=== PATIENT | female | born 2000 | race Caucasian/White ===

== ENCOUNTER 2022-12-11 17:49 | Emergency (ER) | payer BC ==
[~2022-12-11] VITALS: Ht 172.7 cm; Wt 65.8 kg
[2022-12-11 17:54] VITALS: BP_SYST 142
[2022-12-11] MEDS ORDERED: ACETAMINOPHEN 325 MG TABLET PO ONE (18:30)
[2022-12-11 20:50] VITALS: BP_SYST 131
[2022-12-11] MEDS ORDERED: ONDA-8 TL (20:51)
[2022-12-11] MEDS ORDERED: IBUP-1971 PO (20:51)
== END 2022-12-11 20:50 | disposition home or self-care (01) ==
LOC: SED 17:49
DX: S09.90XA Unspecified injury of head, initial encounter (principal); F07.81 Postconcussional syndrome; Z79.899 Other long term (current) drug therapy; W22.8XXA Striking against or struck by other objects, initial encounter; Y93.E1 Activity, personal bathing and showering; Y92.89 Other specified places as the place of occurrence of the external cause; Y99.8 Other external cause status
CPT/HCPCS: 70450-TC; 76376; 81025; 99284

== ENCOUNTER 2023-01-27 08:43 | Emergency (ER) | payer BC ==
[~2023-01-27] VITALS: Ht 172.7 cm; Wt 64.9 kg
[~2023-01-27 08:43] MED LIST: IBUP-1971 PO; ONDA-8 TL
[2023-01-27 08:53] VITALS: BP_SYST 134
--- NOTE | 2023-01-27 09:15 | NUR ---
Pt bib self from home. Chief complaint dysuria and frequency. Pt states history of 3 UTI in past 6 months. Pt complains of 5/10 pain gradient located in pelvic region intermittently.
--- NOTE | 2023-01-27 09:27 | NUR ---
Urine collected and sent to lab. HCG POC negative.
--- NOTE | 2023-01-27 09:30 | NUR ---
ER at bedside examining patient.
[2023-01-27 10:20] LABS: BILIRUBIN,URINE NEGATIVE (NEGATIVE); BLOOD, URINE NEGATIVE (NEGATIVE); CLARITY/URINE CLEAR (CLEAR); COLOR,URINE YELLOW (YELLOW); GLUCOSE,URINE NEGATIVE (NEGATIVE); KETONES,URINE NEGATIVE (NEGATIVE); LEUKOCYTE ESTERASE ,URINE NEGATIVE (NEGATIVE); NITRITE, URINE NEGATIVE (NEGATIVE); PROTEIN URINE NEGATIVE (NEGATIVE); UROBILINOGEN,URINE 0.2 (0.2-1.0)
[2023-01-27] MEDS ORDERED: PHEN-726 PO (10:35)
--- NOTE | 2023-01-27 10:41 | NUR ---
Patient given written and verbal discharge instructions and verbalizes understanding. ER MD discussed with patient the results and treatment provided. Patient in stable condition. ID arm band removed. Rx of Pyridium given. Patient educated on pain management and to follow up with PMD. Opportunity for questions provided and answered. Medication side effect fact sheet provided.
[2023-01-27 10:42] VITALS: BP_SYST 134
== END 2023-01-27 10:41 | disposition home or self-care (01) ==
LOC: SED 08:43
DX: R30.0 Dysuria (principal); R35.0 Frequency of micturition; Z79.899 Other long term (current) drug therapy
CPT/HCPCS: 81003; 81025; 99283